=== PATIENT | female | born 1990 | race Caucasian/White ===

== ENCOUNTER 2019-02-01 09:08 | Emergency (ER) | payer OTHER ==
[~2019-02-01] VITALS: Ht 162.6 cm; Wt 72.7 kg
[2019-02-01] MEDS ORDERED: LORazepam 1 MG TABLET SL ONE (11:30)
[2019-02-01 11:43] VITALS: BP 109/78
== END 2019-02-01 12:05 | disposition home or self-care (01) ==
LOC: EMS 09:08
DX: F43.0 Acute stress reaction (principal); R62.50 Unspecified lack of expected normal physiological development in childhood